=== PATIENT | male | born 1975 | race Caucasian/White ===

== ENCOUNTER 2017-04-12 11:36 | Emergency (ER) | payer OTHER ==
[2017-04-12 11:42] VITALS: O2SAT 98
--- NOTE | 2017-04-12 12:21 | EDPHY ---
H & P Time Seen by Provider: 04/12/17 12:09 HPI/ROS: CHIEF COMPLAINT: Chest pain HISTORY OF PRESENT ILLNESS: 41-year-old male presents with left-sided chest pain. 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 After that, he developed left-sided chest pain. The chest pain is constant, but increases with deep inspiration. The pain is mainly dull but there is also a sharp component anteriorly. Somewhat relieved with ibuprofen. No associated symptoms and no recent illness. History of left-sided pneumothorax in 1995. REVIEW OF SYSTEMS: Constitutional: No fever, no chills Eyes: No visual changes ENT: No sore throat Respiratory: No cough, no shortness of breath Gastrointestinal: No nausea, no vomiting, no abdominal pain Genitourinary: no dysuria Musculoskeletal: No leg pain or swelling Skin: No rash Neurological: No headache, no weakness Psychiatric: No depression Past Medical/Surgical History: Pneumothorax Social History: No recent alcohol Smoking Status: Never smoked Physical Exam: General Appearance: Alert, pleasant Eyes: Pupils equal and round, no conjunctival pallor or injection ENT, Mouth: Mucous membranes moist Neck: Normal inspection Respiratory: normal inspection, point tenderness over the left anterior chest wall, Lungs are clear to auscultation Cardiovascular: Regular rate and rhythm Gastrointestinal: Abdomen is soft and nontender Neurological: A&O, nonfocal, normal gait Skin: Warm and dry, no rash Extremities: Nontender, no pedal edema Psychiatric: Mood and affect normal Constitutional: Initial Vital Signs Temperature (C) 36.9 C 04/12/17 11:39 Heart Rate 84 04/12/17 11:39 Respiratory Rate 20 04/12/17 11:39 Blood Pressure 174/106 H 04/12/17 11:39 O2 Sat (%) 98 04/12/17 11:39 O2 Delivery Mode Room Air Allergies/Adverse Reactions: Penicillins Allergy (Verified 04/12/17 11:38) Sulfa (Sulfonamide Antibiotics) Allergy (Verified 04/12/17 11:38) Home Medications: Medication Instructions Recorded Cialis 04/12/17 Triamterene 04/12/17 Medical Decision Making - Diagnostics EKG Interpretation: EKG interpreted by me reveals normal sinus rhythm, rate 72, no ST or T segment changes. Imaging Results: chest x-ray: NAD Imaging: I viewed and interpreted images myself ED Course/Re-evaluation: This patient presents with atypical chest pain. Stat chest x-ray reveals no evidence of pneumothorax. EKG is without dysrhythmia or ischemia. Clinical scenario consistent with musculoskeletal etiology of chest pain. I feel that he is safe and stable for discharge. Differential Diagnosis: Differential diagnosis includes though it is not limited to pneumonia, pneumothorax, pulmonary embolism, aortic dissection, pericarditis, acute coronary syndrome. Departure - Departure Disposition: Home, Routine, Self-Care Clinical Impression: Chest wall pain Condition: Good Instructions: Chest Wall Pain (ED) Additional Instructions: Ibuprofen 600 mg 3 times daily while the pain persists. Referrals: KARYNA HIDALGO [Other] - As per Instructions
--- NOTE | 2017-04-12 12:27 | CPEKG ---
Heart Rate: 72 RR Interval: 833 P-R Interval: 152 QRSD Interval: 100 QT Interval: 416 QTC Interval: 456 P [place]: 26 QRS [place]: 24 T Wave [place]: 7 EKG Severity - NORMAL ECG - EKG Impression: SINUS RHYTHM Electronically Signed By: Anna Marie Vargas 12-Apr-2017 15:05:01
[2017-04-12 12:44] VITALS: BP 135/76; PULSE 75; RESP 16; TEMP 97.5
== END 2017-04-12 12:48 | disposition home or self-care (01) ==
DX: R07.89 Other chest pain (principal)

== ENCOUNTER 2017-05-07 07:09 | Day surgery (SDC) | payer OTHER ==
--- NOTE | 2017-05-07 07:19 | CPEKG ---
Heart Rate: 96 RR Interval: 625 P-R Interval: 136 QRSD Interval: 98 QT Interval: 396 QTC Interval: 501 P [place]: 74 QRS [place]: 27 T Wave [place]: -47 EKG Severity - ABNORMAL ECG - EKG Impression: SINUS RHYTHM Electronically Signed By: Carl Mosquera 07-May-2017 13:51:20
[2017-05-07 07:21] VITALS: TEMP 98.8
[2017-05-07 07:24] LABS: % IMMATURE GRANULYOCYTES 0.4 % (0.0-1.1); ABSOLUTE IMMATURE GRANULOCYTES 0.03 10^3/uL (0.00-0.10); ADD DIFF? NO; ADD MORPH? NO; ADD SCAN? NO; ATYPICAL LYMPHOCYTE FLAG 10 (0-99); FRAGMENT RBC FLAG 0 (0-99); HEMATOCRIT 52.1 % (40.0-51.0); HEMOGLOBIN 19.4 g/dL (13.7-17.5); LEFT SHIFT FLG 0 (0-99); LIPEMIA HEMOLYSIS FLAG 90 (0-99); MEAN CELL HEMOGLOBIN 31.8 pg (27.9-34.1); MEAN CELL HEMOGLOBIN CONCENTR. 37.2 g/dL (32.4-36.7); MEAN CELL VOLUME 85.3 fL (81.5-99.8); MEAN PLATELET VOLUME 10.9 fL (8.7-11.7); PLATELET CLUMPS FLAG 20 (0-99); PLATELET COUNT 266 10^3/uL (150-400); RED BLOOD CELL COUNT 6.11 10^6/uL (4.40-6.38); RED CELL DISTRIBUTION WIDTH 11.5 % (11.5-15.2)
--- NOTE | 2017-05-07 07:27 | EDPHY ---
H & P Time Seen by Provider: 05/07/17 07:14 HPI/ROS: CHIEF COMPLAINT: Episodic palpitations, lightheadedness, dyspnea, left arm paresthesias HISTORY OF PRESENT ILLNESS: The patient presents the ED with a several week history of episodic palpitations, lightheadedness, shortness of breath, chest heaviness and left arm paresthesias. The patient states his symptoms began several weeks ago after being seen in the emergency department secondary to concerns about a recurrent pneumothorax. During his ED evaluation at that time he had an unremarkable chest x-ray and EKG. Given his persistent symptoms he saw his primary care provider who ordered a stress test. This was performed yesterday however had to be stopped secondary to hypertension per the patient's report. The patient started a new medication for blood pressure control yesterday. The patient states that he was at work today when he developed REVIEW OF SYSTEMS: A comprehensive 10 point review of systems is otherwise negative aside from elements mentioned in the history of present illness. - Medical/Surgical History Hx Asthma: No Hx Chronic Respiratory Disease: No Hx Diabetes: No Hx Cardiac Disease: No Hx Renal Disease: No Hx Cirrhosis: No Hx Alcoholism: No Hx HIV/AIDS: No Hx Splenectomy or Spleen Trauma: No Other PMH: PNEUMO/APPY - Social History Smoking Status: Never smoked Constitutional: Initial Vital Signs Temperature (C) 37.1 C 05/07/17 07:19 Heart Rate 114 H 05/07/17 07:19 Respiratory Rate 19 05/07/17 07:19 Blood Pressure 132/95 H 05/07/17 07:19 O2 Sat (%) 96 05/07/17 07:19 O2 Delivery Mode Room Air Allergies/Adverse Reactions: Penicillins Allergy (Verified 04/12/17 11:38) Sulfa (Sulfonamide Antibiotics) Allergy (Verified 04/12/17 11:38) Home Medications: Medication Instructions Recorded Cialis 04/12/17 Triamterene 04/12/17 Medical Decision Making - Diagnostics Imaging Results: Imaging Impressions Chest X-Ray 05/07/17 07:39 Impression: Normal. ED Course/Re-evaluation: The patient presents to the ED with intermittent symptoms of chest pain, shortness of breath, palpitations and presyncope. These have been occurring over the past several weeks with minimal exertion. The patient has a strong family history of coronary artery disease. As well as a family history of sudden . The patient EKG upon arrival demonstrates no evidence of ischemia. The patient' s troponin is normal. The patient's D-dimer is negative which I feel adequately excludes pulmonary embolism. The patient was placed on a cardiac catheterization technologist and observed to have no significant ectopy throughout his stay in the emergency department. Given the patient's increasing symptoms as well as family medical history I did consult with Dr. Juan Pérez from Cardiology who evaluated the patient in the emergency department at 12:00 p.m.. The patient will be taken to the cardiac catheterization lab for further characterization of his coronary anatomy given his symptoms and family medical history. The patient underwent serial examinations of by myself x3 over a 4 hour period in the ED. He had no significant hemodynamic abnormalities noted. Differential Diagnosis: Differential diagnosis considered includes myocardial infarction, pericarditis, arrhythmia, anxiety syndrome, dehydration, metabolic abnormality, pulmonary embolism - Data Points Laboratory Results: Laboratory Results 05/07/17 07:15 05/07/17 07:00 05/07/17 05/07/17 05/07/17 07:15 07:00 07:00 WBC 7.15 10^3/uL 10^3/uL (3.80-9.50) RBC 6.11 10^6/uL 10^6/uL (4.40-6.38) Hgb 19.4 g/dL H g/dL (13.7-17.5) Hct 52.1 % H % (40.0-51.0) MCV 85.3 fL fL (81.5-99.8) MCH 31.8 pg pg (27.9-34.1) MCHC 37.2 g/dL H g/dL (32.4-36.7) RDW 11.5 % % (11.5-15.2) Plt Count 266 10^3/uL 10^3/uL (150-400) MPV 10.9 fL fL (8.7-11.7) Neut % (Auto) 57.2 % % (39.3-74.2) Lymph % (Auto) 33.8 % % (15.0-45.0) Dolores % (Auto) 7.0 % % (4.5-13.0) Eos % (Auto) 0.8 % % (0.6-7.6) Baso % (Auto) 0.8 % % (0.3-1.7) Nucleat RBC Rel Count 0.0 % % (0.0-0.2) Absolute Neuts (auto) 4.08 10^3/uL 10^3/uL (1.70-6.50) Absolute Lymphs (auto) 2.42 10^3/uL 10^3/uL (1.00-3.00) Absolute Monos (auto) 0.50 10^3/uL 10^3/uL (0.30-0.80) Absolute Eos (auto) 0.06 10^3/uL 10^3/uL (0.03-0.40) Absolute Basos (auto) 0.06 10^3/uL 10^3/uL (0.02-0.10) Absolute Nucleated RBC 0.00 10^3/uL 10^3/uL (0-0.01) Immature Gran % 0.4 % % (0.0-1.1) Immature Gran # 0.03 10^3/uL 10^3/uL (0.00-0.10) D-Dimer < 0.27 ug/mLFEU ug/mLFEU (0.00-0.50) Sodium 145 mEq/L H mEq/L (134-144) Potassium 3.7 mEq/L mEq/L (3.5-5.2) Chloride 96 mEq/L L mEq/L (97-110) Carbon Dioxide 24 mEq/l mEq/l (22-31) Anion Gap 25 mEq/L H mEq/L (8-16) BUN 15 mg/dL mg/dL (7-23) Creatinine 0.9 mg/dL mg/dL (0.7-1.3) Estimated GFR > 60 Glucose 118 mg/dL H mg/dL (70-100) Calcium 11.5 mg/dL H mg/dL (8.5-10.4) Phosphorus 1.8 mg/dL L mg/dL (2.5-4.5) Magnesium 2.3 mg/dL mg/dL (1.6-2.3) Troponin I < 0.012 ng/mL ng/mL (0.000-0.034) Medications Given: Discontinued Medications Acetaminophen (Tylenol) 650 mg PO EDNOW ONE Stop: 05/07/17 11:23 Last Admin: 05/07/17 11:24 Dose: 650 mg Sodium Chloride (Ns) 1,000 mls @ 0 mls/hr IV EDNOW ONE; Wide Open PRN Reason: Protocol Stop: 05/07/17 10:39 Last Admin: 05/07/17 10:39 Dose: 1,000 mls Departure - Departure Disposition: To OP Cath/Surgery Clinical Impression: Chest pain, Palpitations, Pre-syncope Condition: Fair Referrals: Patient,NotPresent [Unknown] - As per Instructions
[2017-05-07 07:32] LABS: ANION GAP 25 mEq/L (8-16); CALCIUM 11.5 mg/dL (8.5-10.4); CARBON DIOXIDE 24 mEq/l (22-31); CHLORIDE 96 mEq/L (97-110); CREATININE 0.9 mg/dL (0.7-1.3); GLOMERULAR FILTRATION RATE > 60; GLUCOSE 118 mg/dL (70-100); POTASSIUM 3.7 mEq/L (3.5-5.2); SODIUM 145 mEq/L (134-144)
[2017-05-07 07:44] LABS: TROPONIN I < 0.012 ng/mL (0.000-0.034)
[2017-05-07 08:04] LABS: MAGNESIUM 2.3 mg/dL (1.6-2.3)
[2017-05-07] MEDS ORDERED: NS 1,000 ML IV ONE (10:38)
[2017-05-07] MEDS ORDERED: ACETAMINOPHEN 325 MG TAB PO ONE (11:22)
[2017-05-07] MEDS ORDERED: VERAPAMIL 5 MG/2 ML VIAL ONE (12:18)
[2017-05-07] MEDS ORDERED: HEPARIN 10,000 UNIT/10 ML MDV ONE (12:18)
[2017-05-07] MEDS ORDERED: MIDAZOLAM 2 MG/2 ML VIAL ONE ×4 (12:18→13:21)
[2017-05-07] MEDS ORDERED: fentaNYL 100 MCG/2 ML INJ ONE ×3 (12:18→13:21)
[2017-05-07] MEDS ORDERED: LIDOCAINE 1% 300 MG/30 ML SDV ONE (12:18)
[2017-05-07] MEDS ORDERED: IOPAMIDOL (ISOVUE-370) 150 ML BTL IV ONE (12:19)
[2017-05-07] MEDS ORDERED: FAMOTIDINE 20 MG TAB PO ONE ×5 (12:22)
[2017-05-07] MEDS ORDERED: DIAZEPAM 5 MG TAB PO ONE ×5 (12:22)
[2017-05-07] MEDS ORDERED: TEMAZEPAM 15 MG CAP PO PRN ×8 (12:22→17:41)
[2017-05-07] MEDS ORDERED: ASPIRIN EC 325 MG TAB PO ONE ×5 (12:22)
[2017-05-07] MEDS ORDERED: diphenhydrAMINE 25 MG CAP PO ONE ×5 (12:22)
[2017-05-07] MEDS ORDERED: ACETAMINOPHEN 325 MG TAB PO PRN ×8 (12:22→17:41)
--- NOTE | 2017-05-07 12:28 | PDCONSULT ---
Slate Mixer Note: Chief Complaint: Chest pain HPI: The patient is a 41-year-old male who comes to the ED via EMS with complaints of 1 month of ongoing chest pain. His chest pain comes in waves with associated lightheadedness and palpitations for the past 2 weeks. Today he developed severe chest pain with associated left arm numbness. The patient quit smoking 1 year ago. The patient has been doing the [employer] workout for 2-3 months without pain. He saw his primary care physician, Dr. Soriano who ordered a stress test. The patient had a stress test yesterday at [facility]. During the stress test the patient developed angina and palpitations. His BP increased to 180/130 and the test was terminated. Patient is on Lisinopril. His blood pressure in the ED was 131/94. The patient was at work today and developed chest pressure and tightness as well as skipped heart beats. The patient arrived via EMS to the Emergency Department. EKG was repeated and found to be abnormal. I was asked to see the patient and consult on the patient. Past Medical Family surgical and social history: The patient is Hypertensive, negative for diabetes, Family history: Maternal uncle suddenly at age 42 while at a football game , presumably of cardiac origin. Mother with stents placed at age 63 with history of aortic stenosis and atrial fibrillation as well. the patient is and has 5 children spanning in age from 18 to 3. He smoked but quit for the most part 6 years ago. He quit for good a year ago. ROS 10 point review of systems is otherwise normal except as listed in HPI. Physical examination VS Blood pressure is 131/94 with heart rate of 86 BPM resp 16 o2 sat was 96% on room Air GEN: anxious alert cooperative HEENT: anicteric PERRL with EOMI Neck no lymphadenopathy or thyromegaly, no bruit carotid pulses normal Heart: RRR without murmur or rub Lungs CTA bilaterally no wheeze rales or rhonci Abd: Postive bowel sounds non distended not tender no rebound or guarding Ext cool dry wand well perfused no peripheral edema Labs pending EKG ST depression in multiple leads inferolateral suggestive of ischemia at rest , Occasional PVC on monitor IMP/Plan: Patient has multiple risk factors for premature CAD including partial history of smoking, premature cardiovascular disease in a first and second degree relative, one of whose presentation was sudden , as well as increased frequency, duration, and intensity of his symptoms now occurring at rest. This is consistent with CCS Class IV symptoms of angina. His EKG stress test yesterday was abnormal because the patient had symptoms on the treadmill, he became hypertensive, and had acute EKG changes with exercise. This is considered an intermediate risk stress test. The patient has resting changes on his EKG. Plan for this patient includes cardiac catheterization. I have explained the risks, expected benefits and potential complications of this course of action with the patient and he wishes to proceed as planned. Some potential benefits include angina relief, definitive assessment of coronary anatomy and LV function. Complications have been described as , permanent and disabling stroke, heart attack, abnormal heart rhythm, bleeding and damage to blood vessels resulting in tissue or limb loss.
[2017-05-07] MEDS ORDERED: NS 1,000 ML IV SCH ×5 (12:30→13:00)
[2017-05-07 12:35] VITALS: PULSE 99
[2017-05-07] MEDS ORDERED: NITROGLYCERIN 1,500 MCG/15 ML VIAL MISC ONE (13:17)
[2017-05-07 13:50] LABS: % IMMATURE GRANULYOCYTES 0.3 % (0.0-1.1); ABSOLUTE IMMATURE GRANULOCYTES 0.02 10^3/uL (0.00-0.10); ADD DIFF? NO; ADD MORPH? NO; ADD SCAN? NO; ATYPICAL LYMPHOCYTE FLAG 0 (0-99); FRAGMENT RBC FLAG 0 (0-99); HEMATOCRIT 39.2 % (40.0-51.0); HEMOGLOBIN 14.3 g/dL (13.7-17.5); LEFT SHIFT FLG 0 (0-99); LIPEMIA HEMOLYSIS FLAG 90 (0-99); MEAN CELL HEMOGLOBIN 31.5 pg (27.9-34.1); MEAN CELL HEMOGLOBIN CONCENTR. 36.5 g/dL (32.4-36.7); MEAN CELL VOLUME 86.3 fL (81.5-99.8); MEAN PLATELET VOLUME 10.7 fL (8.7-11.7); PLATELET CLUMPS FLAG 0 (0-99); PLATELET COUNT 203 10^3/uL (150-400); RED BLOOD CELL COUNT 4.54 10^6/uL (4.40-6.38); RED CELL DISTRIBUTION WIDTH 11.5 % (11.5-15.2)
[2017-05-07 13:58] LABS: INR 1.25 (0.83-1.16); PROTIME(PATIENT) 15.7 SEC (12.0-15.0)
--- NOTE | 2017-05-07 14:03 | CPEKG ---
Heart Rate: 76 RR Interval: 789 P-R Interval: 144 QRSD Interval: 98 QT Interval: 416 QTC Interval: 468 P [place]: 61 QRS [place]: 18 T Wave [place]: -41 EKG Severity - BORDERLINE ECG - EKG Impression: SINUS RHYTHM EKG Impression: short pr interval Electronically Signed By: Niall Cerrato 08-May-2017 11:05:18
[2017-05-07 14:05] LABS: ANION GAP 8 mEq/L (8-16); CALCIUM 8.6 mg/dL (8.5-10.4); CARBON DIOXIDE 25 mEq/l (22-31); CHLORIDE 101 mEq/L (97-110); CHOLESTEROL 159 mg/dL (140-200); CHOLESTEROL/HDL RATIO 8.37 RATIO (1.00-4.97); CREATININE 0.7 mg/dL (0.7-1.3); GLOMERULAR FILTRATION RATE > 60; GLUCOSE 95 mg/dL (70-100); HIGH DENSITY LIPOPROTEIN 19 mg/dL (40-65); LDL/HDL RATIO 6.53 RATIO (1.00-3.64); LOW DENSITY LIPOPROTEIN 124 mg/dL (70-100); MAGNESIUM 1.9 mg/dL (1.6-2.3); NON-HIGH DENSITY LIPOPROTEIN 140 mg/dL (90-129); POTASSIUM 3.2 mEq/L (3.5-5.2); SODIUM 134 mEq/L (134-144); TRIGLYCERIDE 83 mg/dL (40-150); VERY LOW DENSITY LIPOPROTEINS 16 mg/dL (8-25)
[2017-05-07 14:31] VITALS: BP 108/78; RESP 13; O2SAT 98
[2017-05-07 14:31] LABS: APTT 243.3 SEC (23.0-38.0)
[2017-05-07] MEDS ORDERED: ATROPINE SULFATE 1 MG/10 ML SYR IVP PRN (15:04)
[2017-05-07] MEDS ORDERED: ONDANSETRON 4 MG/2 ML VIAL IVP PRN (15:04)
--- NOTE | 2017-05-07 17:23 | PDDXCAT ---
Diagnostic Cath Note - . Date: 05/07/17 Director Of Physician Practices: Elisa - Procedure Access: right wrist Procedure: left heart catheterization - Materials Left Heart Cath size: 5F Left Heart Cath materials: standard multipack (JL4, JR4, pigtail) - Findings-Left Heart Catheterization LM: 6mm in size. Trifurcates to LAD circumflex. LAD: 3mm in size proximally. In mid LAD with each systolic contraction evidence of compression of the lumen over an opprox 25mm long segment. 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 LCX: 3-3.5mm in size and is co-dominant Ramus: 1.5mm in size. FREDERICK III flow EDP: 9mmHg which is normal LVEF: 60%. No signficant mitral regurgitation, mitral valve prolapse, or aortic stenosis. There is no evidence of LVOT obstruction. Complications: NONE. Estimated blood loss: <50ml Closure method: TR Band Assessment: There is no evidence of shawnee vessel CAD. This patient has a normal codominant coronary system except for a minor muscle bridge of the LAD. A specific cause for the patient's chest pain and palpitations is not identified on the basis of this study. Plan: Have the patient discharged to home with exercise restrictions for the first 7 days following the procedure and follow up with me. Patient Problems: Problems Problem Status Onset Chest pain Acute Palpitations Acute Pre-syncope Acute Essential hypertension Active Thyroid nodule Active
== END 2017-05-07 17:25 | disposition home or self-care (01) ==
LOC: EDUNIT# → FSGY 14:04 → UNDOADMIN 14:04 → F2W 14:10 → UNDODISIN 17:25 → FSGY 17:25
PROVIDERS: ATTEND Emergency Medicine
PROC: 4A023N7 Measurement of Cardiac Sampling and Pressure, Left Heart, Percutaneous Approach (ICD-10-PCS; principal; 2017-05-07)
PROC: B2151ZZ Fluoroscopy of Left Heart using Low Osmolar Contrast (ICD-10-PCS; principal; 2017-05-07)
PROC: B2111ZZ Fluoroscopy of Multiple Coronary Arteries using Low Osmolar Contrast (ICD-10-PCS; principal; 2017-05-07)
DX: R07.9 Chest pain, unspecified (principal)
CPT/HCPCS: 71020; 93005; 93458; 96360; 99285; C1769; J1644; J2250; J3010; Q9967

== ENCOUNTER → 2018-08-06 | Emergency (ER) | payer OTHER ==
[~2018-08-06] MED LIST: HYDROmorphONE/DILAUDID 2 MG/ML INJ IVP ONE; NS 1,000 ML IV ONE; ONDANSETRON 4 MG/2 ML VIAL IVP ONE
--- NOTE | 2018-08-06 15:15 | EDPHY ---
H & P Time Seen by Provider: 08/06/18 15:06 HPI/ROS: HPI Left flank pain. History of kidney stones. 42-year-old male by private vehicle. This patient has a history of nephrolithiasis. He has had stones drop on his right side in the past. He states that last night at around 10:00 p.m. He developed left flank pain with radiation to the left lower quadrant of his abdomen. He describes this pain as identical to the pain he has had in the past on his right side associated with his kidney stones. He has had associated nausea but no vomiting. He denies gross hematuria. No fever. Last meal was lunch time today at around 1:00 p.m.. ROS: Constitutional: No fever, no chills. No weakness. Eyes: No discharge. No changes in vision. ENT: No sore throat. No nasal congestion or rhinorrhea. Respiratory: No cough. No shortness of breath. Cardiac: No chest pain, no palpitations. Gastrointestinal: As above, no vomiting, no diarrhea. Genitourinary: No hematuria. No dysuria or increased frequency with urination. No testicular pain. Musculoskeletal: As above. No neck pain. No myalgias or arthralgias. Skin: No rashes. Neurological: No headache. No focal weakness or altered sensation. Past medical history: Appendectomy, kidney stones, pneumonia. Medication allergies include sulfa and penicillins. Social history: Nonsmoker. Denies alcohol. Here by himself. Physical Exam: General Appearance: Alert, no distress. He appears comfortable at this time. He has received 1 mg of IV hydromorphone from triage. This patient is responding to questions appropriately and in full sentences. This patient appears well-hydrated and well-nourished. Eyes: Pupils equal and round no pallor or injection. No lid edema, erythema or injection. Respiratory: There are no retractions, lungs are clear to auscultation with good air movement bilaterally. Cardiovascular: Regular rate and rhythm. No murmur. Gastrointestinal: Abdomen is soft and nontender, no masses, bowel sounds normal. No focal tenderness at McBurney's point. No Patricio sign. Testicular exam: Normal uncircumcised penis. Testicles are of normal lie, no swelling, erythema/edema noted. No tenderness on palpation. No clinical evidence of torsion. Neurological: Motor sensory function is grossly intact. Cranial nerves are normal. Gait is normal. Skin: Warm and dry, no rashes. Musculoskeletal: Neck is supple and nontender. Vague left-sided CVA tenderness on palpation. No right-sided CVA tenderness on palpation. Extremities are symmetrical. All joints range without pain or impingement. Psychiatric: No agitation. No depression. Database: EKG: Imaging: CT abdomen and pelvis without contrast: There is no evidence of ureterolithiasis, hydronephrosis, diverticulitis or other significant pathology. This is essentially a normal study. Results were discussed with staff radiologist Dr. Hammad Lawson. Procedures: Emergency department course: Triage vital signs reviewed and are normal. An IV was placed. The patient was started on IV normal saline with 1 L to be given over the next hour. He was initially given 4 mg of IV Zofran for nausea and 1 mg of IV hydromorphone for pain. His pain is currently well controlled after this medication. CT noncontrast of the abdomen and pelvis will be obtained to evaluate for sized positioning of likely left-sided ureteral stone. 4:05 p.m., the patient was re-evaluated, his pain is currently well controlled. I discussed the results of his CT scan as well as blood work and urinalysis. He has a elevation of his creatinine of 1.5. I have instructed him to follow up with his primary care physician after [place] for re-evaluation and a repeat creatinine. He has been instructed to avoid NSAID medications. He has been instructed to keep himself well hydrated. He feels comfortable going home at this time. He understands his follow-up. Return to emergency department precautions thoroughly reviewed. All of his questions were answered. He was discharged from the emergency department in good condition. Differential Diagnosis: The differential diagnosis on this patient includes but is not limited to left flank muscle strain, left-sided ureterolithiasis, pyelonephritis, diverticulitis. This represents a partial list of diagnoses considered. These considerations are based on history, physical exam, past history, reassessment and diagnostic testing. Smoking Status: Never smoked Constitutional: Initial Vital Signs Temperature (C) 37 C 08/06/18 14:24 Heart Rate 71 08/06/18 14:24 Respiratory Rate 18 08/06/18 14:24 Blood Pressure 116/75 08/06/18 14:24 O2 Sat (%) 95 08/06/18 14:24 Allergies/Adverse Reactions: Penicillins Allergy (Verified 08/06/18 14:28) Sulfa (Sulfonamide Antibiotics) Allergy (Verified 08/06/18 14:28) Home Medications: Medication Instructions Recorded Cialis 10 mg PO DAILY 04/12/17 LISINOPRIL/HYDROCHLOROTHIAZIDE 1 PO BID 05/07/17 Medical Decision Making - Diagnostics Imaging Results: Imaging Impressions Abdomen/Pelvis CT 08/06/18 15:10 Impression: No evidence for nephrolithiasis or hydronephrosis. No evidence for ureteral calculus. Moderate constipation. Results called and discussed with Soledad Jacobs MD, on 08/06/2018, 15: 43. Attention: This CT examination is specifically designed to evaluate patients who are clinically suspected of having acute obstructive uropathy. This examination does not use radiographic contrast, and as such, provides only a limited evaluation of the abdomen, pelvis and retroperitoneum. If there is further clinical suspicion for pathological conditions other than obstructive uropathy, a complete CT evaluation of the abdomen and pelvis utilizing intravenous, oral, and rectal contrast should be considered. - Data Points Laboratory Results: 08/06/18 08/06/18 15:53 14:55 POC Hgb 14.3 gm/dL gm/dL (13.7-17.5) POC Hct 42 % % (40-51) POC Sodium 138 mEq/L mEq/L 140 mEq/L mEq/L (135-145) (135-145) POC Potassium 3.6 mEq/L mEq/L 3.2 mEq/L L mEq/L (3.3-5.0) (3.3-5.0) POC Chloride 99 mEq/L mEq/L 100.0 mEq/L mEq/L (97-110) (97-110) POC Total CO2 27 mEq/L mEq/L (22-31) POC BUN 18 mg/dL mg/dL 15 mg/dL mg/dL (7-23) (7-23) POC Creatinine 1.5 mg/dL H mg/dL 1.5 mg/dL H mg/dL (0.7-1.3) (0.7-1.3) POC Glucose 95 mg/dL mg/dL 98 mg/dL mg/dL (70-100) (70-100) POC Calcium 9.3 mg/dL mg/dL (8.5-10.4) Medications Given: Discontinued Medications Hydromorphone HCl (Dilaudid) 1 mg IVP EDNOW ONE Stop: 08/06/18 14:37 Last Admin: 08/06/18 15:02 Dose: 1 mg Sodium Chloride (Ns) 1,000 mls @ 0 mls/hr IV EDNOW ONE; Wide Open PRN Reason: Protocol Stop: 08/06/18 14:36 Last Admin: 08/06/18 15:04 Dose: 1,000 mls Sodium Chloride (Ns) 1,000 mls @ 0 mls/hr IV EDNOW ONE; Wide Open PRN Reason: Protocol Stop: 08/06/18 15:30 Last Admin: 08/06/18 15:55 Dose: 1,000 mls Ondansetron HCl (Zofran) 4 mg IVP EDNOW ONE Stop: 08/06/18 14:36 Last Admin: 08/06/18 15:04 Dose: 4 mg Point of Care Test Results: CBC CBC Collection Date 08/06/18 CBC Collection Time 14:50 WBC 6.1 RBC 4.75 HGB 14.8 HCT 41.5 PLT 223 Neut # 3.9 Neut 63.2 LYMPH # 1.6 LYMPH 27.0 Other WBC # 0.6 Other WBC 9.8 MCV 87.4 Chemistry 08/06/18 08/06/18 15:53 14:55 POC Sodium 138 mEq/L mEq/L 140 mEq/L mEq/L (135-145) (135-145) POC Potassium 3.6 mEq/L mEq/L 3.2 mEq/L L mEq/L (3.3-5.0) (3.3-5.0) POC Chloride 99 mEq/L mEq/L 100.0 mEq/L mEq/L (97-110) (97-110) POC Total CO2 27 mEq/L mEq/L (22-31) POC BUN 18 mg/dL mg/dL 15 mg/dL mg/dL (7-23) (7-23) POC Creatinine 1.5 mg/dL H mg/dL 1.5 mg/dL H mg/dL (0.7-1.3) (0.7-1.3) POC Glucose 95 mg/dL mg/dL 98 mg/dL mg/dL (70-100) (70-100) POC Calcium 9.3 mg/dL mg/dL (8.5-10.4) ISTAT H&H 08/06/18 15:53 POC Hgb 14.3 gm/dL gm/dL (13.7-17.5) POC Hct 42 % % (40-51) Urine Dip Collection Date 08/06/18 Collection Time 14:25 Specific [place] (1.002-1.030) 1.020 PH (5.0-7.5) 7.5 Leukocytes (Negative) Negative Nitrites (Negative) Negative Protein (Negative) Negative Glucose (Negative) Negative Ketones (Negative) Negative Urobilnogen (0.2-1.0 EU) 0.2 Bilirubin (Negative) Negative Blood (Negative) Negative Departure - Departure Disposition: Home, Routine, Self-Care Clinical Impression: Left flank pain, Renal insufficiency Condition: Good Instructions: Acute Kidney Injury (DC), Flank Pain (ED) Additional Instructions: Read and follow provided instructions. Follow-up with your primary care physician next week, after the holidays for re- evaluation and a repeat creatinine. Do not take any NSAID medications such as ibuprofen, Aleve, naproxen. Keep yourself well hydrated. Drink lots of fluids. Return to the emergency department for worsening pain, fever or other serious concerns. Referrals: Ashlyn Jeronimo MD [Primary Care Provider] - As per Instructions
[2018-08-06 16:17] VITALS: BP 107/64
== END | disposition home or self-care (01) ==
LOC: CED 14:16
DX: N28.9 Disorder of kidney and ureter, unspecified (principal); R10.32 Left lower quadrant pain; E86.9 Volume depletion, unspecified; Z88.0 Allergy status to penicillin; Z88.2 Allergy status to sulfonamides; Z87.442 Personal history of urinary calculi
CPT/HCPCS: 74176-PO; 80048-PO; 82435-PO; 82565-PO; 82947-PO; 84132-PO; 84295-PO; 84520-PO; 85014-PO; 96374; J1170; J2405